=== PATIENT | female | born 1995 | race African-American/Black ===

== ENCOUNTER 2021-01-16 12:43 | Emergency (ER) | payer OTHER ==
[~2021-01-16] VITALS: Ht 167.6 cm; Wt 89.8 kg
[2021-01-16] MEDS ORDERED: DEXAMETHASONE SOD PHOS 10 MG/ML VIAL. IV ONE (13:00)
[2021-01-16] MEDS ORDERED: EPINEPHrine SYRINGE 1 MG/10 ML SYRINGE IM ONE (13:00)
[2021-01-16] MEDS ORDERED: FAMOTIDINE 20 MG/2 ML VIAL IVP ONE (13:00)
[2021-01-16] MEDS ORDERED: IV NORMAL SALINE 1,000ML 1,000 ML IV SCH (13:00)
[2021-01-16] MEDS ORDERED: diphenhydrAMINE 50 MG/ML VIAL IV ONE (13:00)
--- NOTE | 2021-01-16 13:04 | PHYS DOC ---
Past History Past Surgical History: No Surgical History General Adult EDM: Chief Complaint: ALLERGIC REACTION HPI: HPI: 25 yo AA F with no significant past medical history presents the ED with complaints of pruritic rash that started over her upper extremities, chest, ab domen and face after eating chicken salad that contained celery, yesterday afternoon. Patient reports no prior history of allergic reaction or anaphylaxis. No known drug allergies. No history of asthma and is not a tobacco smoker. States she became worried when the rash got worse on her face today. Review of Systems: Review of Systems: Constitutional: Denies fever or chills Eyes: Denies change in visual acuity HENT: Denies nasal congestion or sore throat or head and neck swelling Respiratory: Denies cough or shortness of breath or drooling Cardiovascular: Denies chest pain or edema GI: Denies abdominal pain, nausea, vomiting, bloody stools or diarrhea : Denies dysuria or vaginal bleeding Musculoskeletal: Denies back pain or joint pain Integument: Denies blistering lesions or desquamation Neurologic: Denies headache, focal weakness or sensory changes Endocrine: Denies polyuria or polydipsia Lymphatic: Denies swollen glands Psychiatric: Denies depression or anxiety Current Medications: Current Meds: Current Medications Medications (Trade) Dose Ordered Sig/Brittany Start Time Stop Time Status Last Admin Dose Admin Dexamethasone Sodium Phosphate (Decadron) 10 mg 1X ONCE 01/16/21 13:00 01/16/21 13:01 UNV Diphenhydramine HCl (Benadryl) 50 mg 1X ONCE 01/16/21 13:00 01/16/21 13:01 UNV Epinephrine HCl (EPINEPHrine SYRINGE) 0.3 mg 1X ONCE 01/16/21 13:00 01/16/21 13:01 UNV Famotidine (Pepcid Vial) 20 mg 1X ONCE 01/16/21 13:00 01/16/21 13:01 UNV Sodium Chloride 1,000 ml @ 1,000 mls/hr Q1H 01/16/21 13:00 01/16/21 13:59 UNV Allergies: Allergies: Allergies Coded Allergies Type Severity Reaction Last Updated Verified No Known Drug Allergies 01/16/21 No Physical Exam: PE: Constitutional: Well developed, well nourished, no acute distress, non-toxic appearance. HENT: Normocephalic, atraumatic, mallampati 1, mild pharyngeal erythema, no oral ulcers or edema Eyes: EOMI, conjunctiva normal, no discharge. Neck: Normal range of motion, supple, Cardiovascular: S1/2 present, regular rhythm Lungs & Thorax: Speaking in full sentences/protecting her airway, bilateral equal chest rise, no tachypnea or increased work of breathing, no stridor, no muffled speech, no drooling Abdomen: soft, no tenderness, abdominal striae present Skin: Warm, dry, raised, red wheel-like lesions over patient's extremities, both cheeks, abdomen and upper chest-no rash upper back, negative Nikolsky sign, Back: No tenderness, no CVA tenderness. [] Extremities: No tenderness, no cyanosis, Neurologic: Alert and oriented X 3, normal motor function, normal sensory function, no focal deficits noted. [] Psychologic: Affect normal, judgement normal, mood normal. [] Current Patient Data: Vital Signs: Vital Signs Date Time Temp Pulse Resp B/P (MAP) Pulse Ox O2 Delivery O2 Flow Rate FiO2 01/16/21 12:50 98.0 83 18 138/79 (98) 98 Room Air EKG: EKG: [] Radiology/Procedures: Radiology/Procedures: [] Heart Score: C/O Chest Pain: No Risk Factors: Risk Factors: DM, Current or recent (<one month) smoker, HTN, HLP, family history of CAD, obesity. Risk Scores: Score 0 - 3: 2.5% MACE over next 6 weeks - Discharge Home Score 4 - 6: 20.3% MACE over next 6 weeks - Admit for Clinical Observation Score 7 - 10: 72.7% MACE over next 6 weeks - Early Invasive Strategies Course & Med Decision Making: Course & Med Decision Making Pertinent Labs and Imaging studies reviewed. (See chart for details) Concern for acute allergic reaction with urticaria, no evidence of angioedema or anaphylaxis. On reevaluation urticaria over face has resolved with minimal urticaria on her upper extremities. Oropharynx still patent. Patient was observed in the ED with improvement of symptoms. Will prescribe steroids, Benadryl, Pepcid and EpiPen-was given instructions on use from EpiPen. Will discharge home with strict ED return precautions were given for shortness of breath, stridor, speech changes, drooling or worsening rash. Encouraged urgent outpatient follow-up with PMD and sheet rocker for definitive testing life- threatening processes were considered but are low suspicion at this time, given history, physical exam and ED workup. Pt was educated on all prescription medications and adverse effects. All patient's questions were answered and pt was stable at time of discharge. Life/limb-threatening differential includes but is not limited to, erythema multiforme, morris-rex syndrome, toxic epidermal necrolysis, staphylococcal scalded skin syndrome, necrotizing fasciitis/myositis/cellulitis, purpura fulminans, heparin or warfarin induced skin necrosis, angioedema, anaphylaxis dr ug rash, disseminated intravascular coagulation, disseminated gonococcal disease, vasculitis, septicemia, petechial disorder or coagulopathy, viral exanthem, Kawasaki's disease or life-threatening burn requiring burn center management or escharotomy. I have spoken with the patient and/or caregivers. I explained the patient's condition, diagnoses and treatment plan based on the information available to me at this time. I have answered the patient and/or caregiver's questions and addressed any concerns. The patient and/or caregivers have a good understanding of patient's diagnosis, condition and treatment plan as can be expected at this point. Vital signs have been stable. Patient's condition is stable and appropriate for discharge from the emergency department. Patient will pursue further outpatient evaluation with primary care physician or other designated or consulting physician as outlined in the discharge instructions. The patient and/or caregivers are agreeable to this plan of care and follow-up instructions have been explained in detail. The patient and/or caregivers have received these instructions in written form and have expressed an understanding of the discharge instructions. The patient and/or caregivers are aware that any significant change of condition or worsening of symptoms should prompt immediate return to this or the closest emergency department or call to 911. Derrick Disclaimer: Derrick Disclaimer: This electronic medical record was generated, in whole or in part, using a voice recognition dictation system. Departure Departure: Impression: Primary Impression: Allergic reaction Additional Impression: Acute urticaria Disposition: HOME / SELF CARE / HOMELESS Condition: STABLE Referrals: PCP,NO (PCP) Follow up with your pcp in 1-2 days or [facility] [phone] OR [facility]-Dr. Hardwick [phone] Patient Instructions: Allergy Skin Testing, Hives Additional Instructions: [facility]: For definitive management and testing of allergies [facility] Call for appointment [phone] [facility] on the [facility] [address], [address] (Address for directions and navigation systems: [address] [place] [address]) EMERGENCY DEPARTMENT GENERAL DISCHARGE INSTRUCTIONS Thank you for coming to [facility] (ED) today and trusting us with you care. We trust that you had a positivie experience in our Emergency Department. If you wish to speak to the department management, you may call the director at [phone]. YOUR FOLLOW UP INSTRUCTIONS ARE FOLLOWS: 1. Do you have a private Doctor? If you do not have a private doctor, please ask for a resource list of physicians or clinics that may be able to assist you with follow up care. 2. The Emergency Physician has interpreted your x-rays. The X-Ray specialist will also review them. If there is a change in the findings, you will be notified in 48 hours when at all possible. 3. A lab test or culture has been done, your results will be reviewed and you will be notified if you need a change in treatment. ADDITIONAL INSTRUCTIONS AND INFORMATION: 1. Your care today has been supervised by a physician who is specially trained in emergency care. Many problems require more than one evaluation for a complete diagnosis and treatment. We recommend that you schedule your follow up appointment as recommended to ensure complete treatment of you illness or injury. If you are unable to obtain follow up care and continue to have a problem, or if your condition worsens, we recommend that you return to the ED. 2. We are not able to safely determine your condition over the phone nor are we able to give sound medical advice over the phone. For these safety reasons, if you call for medical advice we will ask you to come to the ED for further evaluation. 3. If you have any questions regarding these discharge instructions please call the ED at [phone]. SAFETY INFORMATION: In the interest of safety, wellness, and injury prevention; we encourage you to wear your sealbelt, if you smoke; quite smoking, and we encourage family to use a protective helmet for bicycling and other sporting events that present an increased risk for head injury. IF YOUR SYMPTOMS WORSEN OR NEW SYMPTOMS DEVELOP, OR YOU HAVE CONCERNS ABOUT YOUR CONDITION; OR IF YOUR CONDITION WORSENS WHILE YOU ARE WAITING FOR YOUR FOLLOW UP ERMIAS OINTMENT; EITHER CONTACT YOUR PRIMARY CARE DOCTOR, THE PHYSICIAN WHOSE NAME AND NUMBER YOU WERE GIVEN, OR RETURN TO THE ED IMMEDIATELY. Scripts Epinephrine (EPIPEN 2-PATT) 0.3 Mg/0.3 Ml Auto.injct 1 SYR IM ONCE for shortness of breath for 1 Day, #1 PACKET 0 Refills Prov: SABINA PRIETO DO 01/16/21 Famotidine (PEPCID) 20 Mg Tablet 1 TAB PO BID for urticaria for 7 Days, #14 TAB 0 Refills Prov: SABINA PRIETO DO 01/16/21 Diphenhydramine Hcl (BENADRYL) 25 Mg Capsule 25 MG PO QID for itching, #20 CAP Prov: SABINA PRIETO DO 01/16/21 Prednisone (PREDNISONE) 10 Mg Tablet 40 MG PO DAILY for allergic reaction for 4 Days, #16 TAB Prov: SABINA PRIETO DO 01/16/21 SABINA PRIETO DO Jan 16, 2021 13:04
[2021-01-16 13:28] LABS: PREG TEST PT QUAL NEGATIVE (NEG)
[2021-01-16] MEDS ORDERED: FAMO-63 PO (15:45)
[2021-01-16] MEDS ORDERED: DIPH25CA58 PO (15:45)
[2021-01-16] MEDS ORDERED: PRED-220 PO (15:45)
[2021-01-16] MEDS ORDERED: EPIN0.3A4 IM (15:46)
[2021-01-16 15:59] VITALS: BP 110/37
== END 2021-01-16 15:56 | disposition home or self-care (01) ==
LOC: ER 12:43
DX: T78.40XA Allergy, unspecified, initial encounter (principal); L50.9 Urticaria, unspecified; X58.XXXA Exposure to other specified factors, initial encounter
CPT/HCPCS: 84703; 96361; 96372; 96374; 96375; 99285; J0171; J1100; J1200; J3490; J7030